=== PATIENT | male | born 1970 | race African-American/Black ===

== ENCOUNTER 2018-01-02 11:44 | Emergency (ER) | payer OTHER ==
[2018-01-02] MEDS ORDERED: traMADol HCl 50 MG TAB ONE (11:58)
[2018-01-02] MEDS ORDERED: Ibuprofen 800 MG TAB ONE (11:58)
--- NOTE | 2018-01-02 17:41 | CT ---
CT OF THE LUMBAR SPINE: DATE: 01/02/18. FINDINGS: Spiral CT of the lumbar spine was performed for evaluation of trauma. Axial slices were acquired, th en coronal and sagittal reconstructions were done. The scan covered the mid T12 level through the to p of the sacrum. There is an acute anterior compression fracture of the superior end plate of L1 vertebral body. The degree of compression is slight with a reduction of anterior height by no more than 15-20%. There is no displacement of the vertebrae. Some lines are seen in the anterior portion of the bottom of T12 that are felt to be most likely developmental than traumatic. An MRI would be definitive. There was no central canal stenosis or foraminal stenosis at any level. There is a break in the pars at L5- on the left. There was no spondylolisthesis. Mild concentric bulges of the L4-5 and L5-S1 d isks were present without evidence of focal disk protrusions. IMPRESSION: 1. Mild anterior compression of the superior end plate of L1. 2. Left-sided unilateral spondylolysis of L5. 3. Mild concentric bulges of L4-L5 and L5-S1 disks. Findings discussed with Dr. Grant at 1230 on 01/02/18. CODE CR POS: HOME
== END 2018-01-02 12:36 | disposition home or self-care (01) ==
LOC: BURERS 11:44
DX: S32.019A Unspecified fracture of first lumbar vertebra, initial encounter for closed fracture (principal); E11.9 Type 2 diabetes mellitus without complications; K21.9 Gastro-esophageal reflux disease without esophagitis; E78.5 Hyperlipidemia, unspecified; Z79.84 Long term (current) use of oral hypoglycemic drugs; Z79.899 Other long term (current) drug therapy; W22.8XXA Striking against or struck by other objects, initial encounter
CPT/HCPCS: 72131